=== PATIENT | female | born 1935 | race Caucasian/White ===

== ENCOUNTER 2025-04-25 02:17 | Inpatient (IN) | payer OTHER, SELFPAY ==
[2025-04-24 23:29] VITALS: BP 167/68; BMI 29.2
[2025-04-24 23:32] VITALS: BP 167/68
--- NOTE | 2025-04-24 23:34 | ED.GENMED ---
History of Present Illness
General
Chief Complaint: Fall
Source: patient and family (Daughter, at bedside)
Exam Limitations: none
Time Seen by Provider: 04/24/25 23:28
Nursing documentation reviewed up to this point in time: agreed with
History of Present Illness
History of Present Illness:
This is an 89-year-old, quite spry woman who resides at home independently. She suffered a mechanical fall tonight injuring her left hip. Denies head injury nor loss of consciousness but severe pain to her left hip, unable to sit up nor stand.
She arrives via EMS.
She was given a total of 150 mcg fentanyl prehospital to assist with pain control, packaging and transportation.
Currently comfortable and reports moderate improvement in pain.
She takes no medicines on a daily basis, denies anticoagulants.
Denies head injury, denies headache, denies neck nor back pain. She denies chest pain nor palpitations nor lightheadedness, denies abdominal pain, no nausea or vomiting. She denies weakness nor numbness.
Past History
Past History
ED Past Medical History: None
ED Past Surgical History: Orthopedic (Left hip replacement, left elbow fracture repair.)
Social History
Tobacco: Non-smoker
Alcohol: None
Personal:
Living: with family
Family History
Family History: Other (Noncontributory)
Phy Exam
Physical Exam
Physical Exam:
TRAUMA EXAM:
VITAL SIGNS: Vital signs reviewed, cooperative
DISTRESS: No active disease. 89-year-old woman appears younger than stated age, bright and alert, pleasant, appears in no acute distress. Her daughter, Jessica, one of our [employer]'s is at bedside.
EYES: Pupils reactive, no orbital trauma
NOSE: No deformity or epistaxis
FACE AND SCALP: No scalp or facial trauma, external canals no blood
NECK: Supple nontender
BACK: Back nontender, pelvis stable to compression
RESPIRATORY: No distress, breath sounds normal, no tender chest wall
CARDIAC: No murmur, pulses equal and strong
ABDOMEN: Soft nontender bowel sounds normal
SKIN: Skin intact no bleeding, color normal
EXTREMITIES: Left lower extremity mildly flexed at hip and knee for comfort. Moderate tenderness about the left hip with markedly limited range of motion left hip related to pain. There is no tenderness about the thigh. Evidence of prior left
total knee replacement. No knee tenderness nor effusion nor contusion. Peripheral pulses are full and equal bilaterally. Full ankle range of motion bilaterally without difficulty nor pain. Sensation and strength intact.
NEUROLOGICAL: Alert, oriented, no motor deficits
PSYCH: Mood affect normal
Course
Orders/Labs/Results
Orders:
Orders
04/24/25 23:32
Electrocardiogram (*1) Urgent
Reason for Study: PreOp
Urinalysis Reflex To Culture Urgent
Date Specimen was Collected: 04/24/25
Time Specimen was Collected: 23:46
04/24/25 23:33
EKG- Treatment ONCE
CR Hip - LT w/wo Pel 2-3 Vw* Urgent
Comment:
Reason For Exam: fall, Left hip pain
Include a pelvis x-ray?: Yes
04/24/25 23:43
Type+Screen Urgent
Complete Blood Count/With Diff Urgent
Comprehensive Metabolic Panel Urgent
PTT Urgent
04/24/25 23:58
ABO2 Routine
BBK Wristband Number:
Associate notified that ABO2 has been ordered: [id number]
Date: 04/25/25
Time: 00:[address] Clerk ID: [id number]
Abnormal Lab Results
04/24/25
23:43
RBC 3.75 L 10^6/uL
(4.20-5.40)
Hct 34.2 L %
(37.0-47.0)
MCH 32.0 H pg
(27.0-31.0)
Chloride 110 H mmol/L
(98-107)
BUN 23 H mg/dl
(7-17)
Glucose 112 H mg/dl
(70-99)
04/24/25 23:43
04/24/25 23:43
Vital Signs
Initial and Last Documented VS:
Initial Vital Signs
Temp Pulse Resp BP Pulse Ox
98.8 F 79 16 167/68 97
04/24/25 23:29 04/24/25 23:29 04/24/25 23:29 04/24/25 23:29 04/24/25 23:29
Last Documented Vital Signs
Temp Pulse Resp BP Pulse Ox
98.8 F 79 16 145/57 95
04/24/25 23:29 04/24/25 23:29 04/24/25 23:29 04/25/25 00:00 04/25/25 00:15
MDM/Problems Addressed
Differential Diagnosis Includes:
Significant concern for acute left hip fracture. Other consideration is pelvic fracture.
Hemodynamically stable. Takes no anticoagulants.
Denies head injury, no loss of consciousness, no prodromal symptoms�nothing to suggest syncope nor near syncope. Denies neck nor back pain.
No focal neurodeficits.
No indication for CT of the head nor spinal imaging.
Will check left hip and pelvis x-ray.
Will continue pain medication as needed.
Routine labs and EKG for potential preop purposes.
*Radiology
Radiology exam reviewed: preliminary read by ED provider (X-ray shows slightly comminuted intertrochanteric left hip fracture. In good alignment.)
*Pulse Oximetry
SaO2: 98
Oxygen Mode of Delivery: Room air
Patient hypoxic: no
*EKG
Interpreted by ED Provider?: Yes
Interpretation: normal
Comparison EKG: no comparison EKG present
Rate: normal
Rhythm: sinus
Descanso: normal axis
Interval: first degree heart block
QRS Pattern: normal QRS
Ischemia: no ischemia
*Children Librarian Interpretation
Rate: normal
Interpretation: normal
Rhythm: sinus
*Critical Care Note
Total Time (30-74mins, 75-104mins- exclusive of procedures): Not Applicable
Update Note
Update Note:
00:25
As expected, left hip x-ray shows slightly comminuted intertrochanteric fracture of the left hip. No pelvic fracture.
Patient remains comfortable, hemodynamically stable.
Labs are unremarkable.
EKG is unremarkable.
Will admit to hospitalist service.
Orthopedics has been notified.
ED Attending Note
-
Portions of this chart may have been created with voice recognition software.� Occasional wrong word or��sound alike� substitutions may have occurred due to the inherent limitations of voice recognition software.
Discharge Plan
Departure
Patient Disposition: Admit
Date of Disposition: 04/25/25
Time of Disposition: 00:26
Admit to: Med/Surg
Admit to doctor: Deirdre
Presentation/result/management discussed w/ accepting MD/DO: Hospitalist
Discharge Problem:
Acute left hip fracture
Prescriptions:
No Action
No Current Medications
0
Interventions
Interventions:
*Risk Screen - Suicide Last Done: 04/24/25 23:29
*General Assessment Last Done: 04/24/25 23:29
*Neglect/Abuse Screening Last Done: 04/24/25 23:29
*ED COVID-19 Vaccine History Last Done: 04/24/25 23:29
ED-Musculoskeletal Assessment Last Done: 04/25/25 00:19
ED- Neurological Assessment Last Done: 04/25/25 00:19
ED-Skin Assessment Last Done: 04/25/25 00:19
Discharge Date and Time
Print Language: GREENLANDIC
[2025-04-24 23:52] LABS: % Basophils 0.4 % (0-2); % Eosinophils 1.3 % (0-6); % Immature Granulocytes 0.4 % (0-0.5); % Lymphocytes 20.9 % (20.5-51.1); % Monocytes 7.9 % (1.7-9.3); % Neutrophils 69.1 % (42.2-75.2); Absolute Eosinophils 0.1 10^3/uL (0-0.7); Absolute Lymphocytes 1.6 10^3/uL (1.2-3.4); Absolute Monocytes 0.6 10^3/uL (0.1-0.6); Absolute Neutrophils 5.1 10^3/uL (1.4-6.5); Hematocrit 34.2 % (37.0-47.0); Mean Corp Hgb Conc. 35.1 g/dL (33.0-37.0); Mean Corpuscular Volume 91.2 fL (81.0-99.0); Mean Platelet Volume 9.4 fL (7.4-10.4); Nucleated Red Blood Cells % 0 %; Platelet Count 211 10^3/uL (130-400); Red Blood Cell Count 3.75 10^6/uL (4.20-5.40); Red Cell Dist. Width 12.9 % (11.5-14.5); White Blood Cell Count 7.5 10^3/uL (4.8-10.8)
[2025-04-25] VITALS (13 sets, daily range): BP systolic 110–175; BP diastolic 49–110; BMI 28.2
[2025-04-25 00:05] LABS: APTT 24.5 Sec (23.4-35.0)
[2025-04-25 00:14] LABS: ALT (SGPT) 13 U/L (0-35); AST (SGOT) 23 U/L (14-36); Albumin 4.2 g/dl (3.5-5.0); Alkaline Phosphatase 88 U/L (38-126); Blood Urea Nitrogen 23 mg/dl (7-17); Calcium 9.6 mg/dl (8.4-10.2); Carbon Dioxide 23 mmol/L (22-30); Chloride 110 mmol/L (98-107); Estimated Creatinine Clearance 59 ml/min; Glucose 112 mg/dl (70-99); Sodium 141 mmol/L (135-145); Total Bilirubin 0.6 mg/dl (0.2-1.3); Total Protein 6.7 g/dl (6.3-8.2); eGFR > 60.00
[2025-04-25] MEDS: NSS 1000 IV (00:59)
--- NOTE | 2025-04-25 01:06 | HPS.HSE ---
Family Physician
-
Family Physician:
Chief Complaint
-
Fall
History of Present Illness
Patient is 89-year-old female with no known segment past medical history presented to the emergency department following a mechanical fall.
She stated that she was walking into her home and tripped on a plastic piece falling to her left side. She had left-sided hip pain immediately. She was able to sit up but was unable to get up after that. She denies any numbness or tingling. She
denies any loss of consciousness. She denies any palpitations lightheaded dizziness or chest pain. She has a prior left knee surgery but no other surgeries. Patient is not on any blood thinners and does not recall striking her head. EMS was
called by spouse and patient brought to the emergency department.
Emergency Department she was afebrile, blood pressure was 145/70 with a pulse of 79 and she was satting 98% on room air. ECG shows a normal sinus rhythm with 4 degree AV block at a rate of 80 and no acute ischemic changes.
CBC was unremarkable. Electrolytes BUN and creatinine were in the normal range. The left hip x-ray shows slightly comminuted intertrochanteric fracture of the left hip
Medical History
Past Medical History
Past Medical History: Reports None
Past Surgical History: Reports Orthopedic (Left total knee arthroplasty,)
Social History
Tobacco: Non-smoker
Alcohol: None
Drug: None
Personal:
Living: With Family
Employment: Retired
Family History
Family History: Not pertinent
Allergies / Home Medications
Allergies reflects when Allergies were last updated in [facility].
Home Medications with original date entered in [facility]
Allergy/Medication List:
Allergies
Allergy/AdvReac Type Severity Reaction Status Date / Time
No Known Allergies Allergy Unverified 04/24/25 23:40
Home Medications
No Meds [No Current Medications] 04/24/25
Review of Systems
-
Constitutional: Reports No Symptoms
EENT: Reports No Symptoms
Respiratory: Reports No Symptoms
Cardiac: Reports No Symptoms
Abdomen/GI: Reports No Symptoms
: Reports No Symptoms
Musculoskeletal: Reports Joint Pain
Skin: Reports No Symptoms
Neurological: Reports No Symptoms
Endocrine: Reports No Symptoms
Hematologic/Lymphatic: Reports No Symptoms
Psych: Reports No Symptoms
Physical Exam
Vital Signs
Vital Signs
Temp Pulse Resp BP Pulse Ox
98.8 F 79 16 145/57 98
04/24/25 23:29 04/24/25 23:29 04/24/25 23:29 04/25/25 00:00 04/25/25 00:29
Physical Exam
General: Well Developed, Well Nourished and No Apparent Distress
HEENT: NormoCephalic, Moist mucous membranes and Atraumatic
Respiratory: Clear
Cardiac: S1/S2, Regular Rhythm, Carotid Pulses and Other (2+ pedal pulses bilaterally); No Murmur, Rub, Peripheral Edema or Calf Tenderness
GI: Soft, Non Tender, Non Distended and Normal Bowel Sounds; No Organomegaly
Rectal: Deferred by Provider
Genito-urinary: Deferred by me
Musculoskeletal: No Clubbing, No Cyanosis, No Edema and Other (No limb length asymmetry)
Skin: No Rash
Neuro: Nonfocal/grossly intact
Laboratory Results
-
04/24/25 23:43
04/24/25 23:43
Laboratory Results
APTT 24.5 Sec (23.4-35.0) 04/24/25 23:43
Total Bilirubin 0.6 mg/dl (0.2-1.3) 04/24/25 23:43
AST 23 U/L (14-36) 04/24/25 23:43
ALT 13 U/L (0-35) 04/24/25 23:43
Alkaline Phosphatase 88 U/L (38-126) 04/24/25 23:43
Data Reviewed
-
Diagnostic Radiology: Image Personally Visualized and interpreted
Medical Tests (Nuc Med, Echo, EKG etc): Image Personally Visualized and interpreted
Lab Data: Labs Reviewed by me
Old Records: Reviewed
Impression/Plan
-
IMPRESSION:
89-year-old without any known past medical history presents to the emergency department following mechanical fall and found to have a left hip intratrochanteric femoral fracture.
PLAN:
Hip fracture -requires surgical procedure
-Admit to MedSurg
-Bedrest pending surgery
-Pain control, antiemetics
-N.p.o., IV fluids
-Monitor for urinary retention
-SCDs for now, can start medical anticoagulation after surgery
-CODE STATUS�full code
[2025-04-25] MEDS: DILAUDID 0.25 MG IV ×2 (01:54→10:30)
--- NOTE | 2025-04-25 03:20 | PTCARENOTE ---
Pt received from ED via stretcher. Pulled over to bed x3 w/o incident. Oriented to surroundings and plan of care discussed. Admission and assessment completed. Wiped down w/CHG cloths, undergarments removed. Purewick external catheter placed
2/2 immobility and pain. Knee high SCDs placed. #18 RAC w/NSS at 125 mL/hr. Pt reports pain as tolerable when not moving. Call cormier w/in reach. Pt is oriented and able to ring appropriately. Verbalizes understanding of bedrest orders.
[2025-04-25] MEDS: LR 1000 IV (04:06)
[2025-04-25] MEDS: TYLENOL PO (04:09)
--- NOTE | 2025-04-25 07:43 | CON.ORTHO ---
Consultation
-
Date/Time Consultation Requested: 04/24/2025; time unknown
Date/Time Consultation Performed: 04/25/2025; 0700
Requesting Provider: unknown
Performing Provider: Nancy Gray PA-C / Dr. Cj Sanchez
Reason for Consultation: Left intertrochanteric femur fracture
Consultation - Orthopedics
History
Ms. Silverman is an 89 yo F with no known PMH seen today for her left hip. She reports she tripped while at home and landed on her left side. She experienced immediate onset of pain, and was unable to get up off the ground. She was transported to
ED via EMS where x-rays revealed an intertrochanteric femur fracture. She is resting comfortably in bed this morning. She denies any pain at rest, but does endorse pain about the hip with movement. She denies pain elsewhere.
She lives at home with her . She ambulates without assistance at baseline. She denies PMH of DVT, CVA, LA or DM. She does not take any daily blood thinners. She denies known history of difficulty with anesthesia.
Allergies / Home Medications
Allergy/AdvReac Type Severity Reaction Status Date / Time
No Known Allergies Allergy Unverified 04/24/25 23:40
�Medication �Instructions �Recorded
No Meds [No Current Medications] 04/24/25
Vital Signs / Lab Results
Temp Pulse Resp BP Pulse Ox
98.2 F 85 18 175/75 95
04/25/25 02:20 04/25/25 02:20 04/25/25 02:20 04/25/25 02:20 04/25/25 03:44
04/24/25 23:43
04/24/25 23:43
XR Left Hip Findings/impression:
Left hip intratrochanteric fracture. Slightly impacted. Nondisplaced, nonangulated. Associated displaced fracture of the lesser trochanter. The periacetabular ilium is intact.
Assessment / Plan
Left intertrochanteric femur fracture
--Unfortunatley, Ivonne sustained a left intertrochanteric femur fracture in her fall. I recommend proceeding with a left cephalomedullary nail for fixation of her fracture. The risks, benefits, alternatives, recovery process and potential
complications were discussed in detail. She would like to proceed with surgical intervention. Surgical and blood consents are signed and on the patient chart. Surgical site has been marked. We plan to proceed with OR this afternoon under the
direction of Dr. Sanchez pending OR availability.
--NPO until surgery.
--NWB to LLE until surgery.
--Pain control prn.
--Abx and irrigation ordered to OR.
--T+S completed.
-Orthopedics will continue to follow along.
[2025-04-25] MEDS: TYLENOL 650 MG PO ×4 (08:12→20:54)
--- NOTE | 2025-04-25 09:39 | CM ---
Reviewed the chart notes and spoke with the patient at the bedside. The patient resides with her spouse in a two story home with no steps reported. The patient reports no DME/VN/SNF in the past. The patient confirmed her pharmacy of choice is
[facility] [place]. CM continues to be available to patient/family and is monitoring medical plan for needs at discharge.
Plan: Discharge plans will depend on the patient's progress.
[2025-04-25] MEDS: LR IV (17:24)
[2025-04-25] MEDS: ASPIRIN 325 MG PO (17:40)
--- NOTE | 2025-04-25 18:12 | VATNOTE ---
IV placed by EMS. Patient states she is being discharge in AM and declined having IV restarted.
[2025-04-25] MEDS: SENOKOT 17.2 MG PO (20:53)
[2025-04-25] MEDS: COLACE 100 MG PO (20:53)
[2025-04-25] MEDS: NORMOSOL-R/PLASMALYTE-A 1000 IV (20:53)
[2025-04-25 21:20] LABS: Hematocrit 30.8 % (37.0-47.0); Hemoglobin 10.6 g/dL (12.0-16.0)
[2025-04-25 21:48] LABS: Blood Urea Nitrogen 17 mg/dl (7-17); Calcium 8.8 mg/dl (8.4-10.2); Carbon Dioxide 20 mmol/L (22-30); Chloride 110 mmol/L (98-107); Estimated Creatinine Clearance 67 ml/min; Glucose 147 mg/dl (70-99); Potassium 4.1 mmol/L (3.5-5.1); Sodium 138 mmol/L (135-145); eGFR > 60.00
[2025-04-25] MEDS: ANCEF 5 IV (22:02)
[2025-04-26] MEDS: TYLENOL PO (00:41)
[2025-04-26 03:00] VITALS: BP 120/56
[2025-04-26] MEDS: TYLENOL 650 MG PO ×4 (03:19→16:29)
[2025-04-26] MEDS: ROXICODONE 5 MG PO ×2 (03:19→07:19)
--- NOTE | 2025-04-26 03:40 | PTCARENOTE ---
Pt hesitant to get OOB --> BSC. Heavy assist x2 w/RW. Voided on BSC. Encouraged to take pain medication, pt hesitant but receptive (refer to MAR). Ice packs to L hip/thigh when returned to bed. Call casa w/in reach.
--- NOTE | 2025-04-26 05:40 | W.PN.ORTHO ---
Today's Communication / Plan
-
89F POD1 L MARY ANN w/ Dr. Sanchez
-WBAT to LLE
-PT/OT/Dc planning
-dvt ppx- ASA x4 weeks unless recommended otherwise per primary
-diet per primary
-pain regimen in place
-postop abx
-ortho surg will continue to follow
Assessment
.
Distal Motor Intact: Yes
Dressing:
Clean, dry and intact.
Plan
.
Surgery / Date: 04/25/25 L MARY ANN w/ Dr. Sanchez
Activity:
Out of bed.
PT/OT
Subjective
.
.:
Patient resting comfortably.
Vital Signs and Labs
.
Vital Signs and Labs:
Lab Results
04/25/25 21:11
04/25/25 21:10
Temp Pulse Resp BP Pulse Ox
98 F 70 16 120/56 96
04/26/25 03:00 04/26/25 03:00 04/26/25 03:00 04/26/25 03:00 04/26/25 03:00
[2025-04-26] MEDS: ANCEF 5 IV (06:10)
[2025-04-26 07:25] VITALS: BP 120/57
[2025-04-26] MEDS: COLACE 100 MG PO (08:50)
[2025-04-26] MEDS: SENOKOT 17.2 MG PO (08:50)
[2025-04-26] MEDS: ASPIRIN 325 MG PO (08:51)
[2025-04-26 10:04] VITALS: BP 120/57
--- NOTE | 2025-04-26 10:13 | CM ---
Patient seen at bedside on . Therapy recommending home with [facility] and patient stated that she will go home with her . Patient daughter is an ED nurse and patient stated that her daughter would support her going home. Patient requested
[facility] following discussion of PAC data and options. CM spoke with Liaison with [facility] and she will speak with patient. Patient given IMM and will review form. CM will continue to follow for discharge planning needs.
Plan; home with [facility] pending acceptance
[2025-04-26 10:25] VITALS: BP 129/63; PULSE 74; O2SAT 96
--- NOTE | 2025-04-26 10:42 | VNURNOTE ---
Home Health Liaison met with patient at bedside to discuss [facility] nurse/therapy, visits, schedule and homebound status. Patient is agreeable and understands that visits at home will be 2-3 x per week to assess and teach medical management. Verfiied
that patient lives in [place]. Explained that [facility] does not service that area. Patient stated she had [facility] in the past but does not want them again. She then stated she will stay with her daughter Jessica who lives at: [address] [place] [address]
[place] [id number].
Patient is aware that [facility] will contact them for start of care in 1-2 days after discharge from .
[facility] referral completed in [facility].
--- NOTE | 2025-04-26 10:48 | W.PN.HOSP.TC ---
Today's Communication/Plan
-
DC planning
Assessment / Plan
Assessment / Plan
Mechanical fall leading to left intertrochanteric hip fracture
status post Left hip gamma nailing utilizing [place] Gamma nail 11mm x 380 mm with a 100 mm hip screw and a 57.7 mm distal interlocking screw.
Pain under control
Await PT OT formal eval
DC home depending on PT eval and if okay from surgical standpoint.
Continue the current pain regimen.
Anticipated Discharge: Today
Subjective/Interval History
-
Date of Service: April 26, 2025
Status post ORIF of left hip fracture.
Sitting in the chair comfortably.
Pain from the surgical site manageable. Did walk on feet without any dizziness.
Objective Data
-
Vital Signs:
Vital Signs
Temp Pulse Resp BP Pulse Ox
98.1 F 71 16 120/57 94
04/26/25 07:25 04/26/25 07:25 04/26/25 07:25 04/26/25 07:25 04/26/25 07:25
I&O
04/25/25 04/26/25 04/27/25
06:59 06:59 06:59
Intake Total 240 / 240 1060 / 1060
Balance 240 / 240 1060 / 1060
Review of Systems
-
Respiratory: Denies Cough or Trouble Breathing
Cardiac: Denies Chest Pain or Palpitations
Abdomen/GI: Denies Abdominal Pain, Nausea or Vomiting
Neuro: Denies Dizzy
Physical Exam
-
Respiratory: Non Labored Respirations; Negative Accessory Resp Muscle Use
Cardiac: Regular Rhythm and S1/S2
Musculoskeletal: No Edema
Neuro: AO x 3
Data Reviewed
-
Labs: Labs Reviewed by me
[2025-04-26 11:25] VITALS: BP 105/45
[2025-04-26] MEDS: NORMOSOL-R/PLASMALYTE-A IV (14:49)
--- NOTE | 2025-04-26 15:15 | W.DCSUMMARY ---
Discharge Summary
Discharge Data
Date of Admission: 04/25/25
Date of Discharge: 04/26/25
-
Pending Results: No
Hospital Course
Primary diagnosis:
Mechanical fall leading onto left intertrochanteric hip fracture status post gamma nailing
Hospital course:
89-year-old lady without significant past medical history unfortunately had a mechanical fall leading into left intertrochanteric hip fracture. She had Left hip gamma nailing utilizing [place] Gamma nail 11mm x 380 mm with a 100 mm hip screw and a
57.7 mm distal interlocking screw 04/25 without any immediate complication. She did well with the PT OT and was recommended home health. Aspirin 325 mg was recommended for 4 weeks for DVT prophylaxis.
Consultants on board:
Orthopedics-Cj Simms
Discharge Plan
-
Patient Disposition: Home with Home Care
Discharge Diagnosis/Procedures: Mechanical fall leading to left intertrochanteric hip fracture
status post Left hip gamma nailing utilizing [place] Gamma nail 11mm x 380 mm with a 100 mm hip screw and a 57.7 mm distal interlocking screw.
Diet: Regular
Activity: As tolerated
Driving Restrictions: Not until seen by your Dr
Bathing Restrictions: OK to Shower
Other Services: [facility], PT and OT
Referrals:
Cj Sanchez MD [Active, Orthopedics] - in two weeks
Referral Note: Call to make an appointment
UNKNOWN - PT DOES,NOT KNOW [Family Provider] - in less than 1 week
Prescriptions:
New
aspirin 325 mg Tablet
325 mg PO DAILY Qty: 30 0RF
Rx Instructions:
for 4 weeks and stop
docusate sodium 100 mg Capsule
100 mg PO DAILY Qty: 30 0RF
acetaminophen 325 mg Tablet
650 mg PO Q4HWA Qty: 1 0RF
oxycodone 5 mg Tablet
5 mg PO Q4HPRN PRN (Reason: mild pain) Qty: 30 0RF
polyethylene glycol 3350 [HealthyLax] 17 gram powder in packet
17 g PO DAILY Qty: 14 0RF
Rx Instructions:
take it daily while on pain medications
Discharge Orders:
Discharge Patient (As Directed); Ordered 04/26/25
Ordered By: Marco Servin
Discharge Date and Time
Print Language: CROATIAN
[2025-04-26 15:25] VITALS: BP 104/42
--- NOTE | 2025-04-26 16:59 | PTCARENOTE ---
Received discharge orders from hospitalist; D/c paperwork reviewed with Pt, all questions answered; Transport called, brought to main exntrance in wheelchair; Discharge to home.
--- NOTE | 2025-04-27 13:35 | CM ---
Addendum entered by Alyssajoy Palmer 04/27/25 14:30:
Pt accept for service by Neeraj VELASQUEZ
Call to pt with update and TT/Nancy Gray with update
Order and dc paperwork faxed via [facility] to [facility]
Addendum entered by Alyssa [facility] 04/27/25 13:42:
Call with pt on her cell [phone]
Does not want [facility] due to poor past experience
Referral to [facility] per pt request via [facility]- pending
Original Note:
Post dc, CM made aware by [facility] that pt now not staying with her dtr but now staying at home in [place]
Her home is out of [facility] service order and will need new home care provider
VM left for number on chart, same number listed for spouse/emergency contact- awaiting call back to discuss provider choices
== END 2025-04-26 16:58 | disposition home health service (06) | DRG 481 ==
LOC: 2 SOUTH 02:17
PROVIDERS: ADMITTING PHYSICIAN Internal Medicine; ATTENDING PHYSICIAN Internal Medicine; CONSULT PHYSICIAN Orthopaedic Surgery; EMERGENCY PHYSICIAN Emergency Medicine
PROC: 0QS706Z Reposition Left Upper Femur with Intramedullary Internal Fixation Device, Open Approach (ICD-10-PCS; 2025-04-25)
DX: S72.145A Nondisplaced intertrochanteric fracture of left femur, initial encounter for closed fracture (principal); M97.02XA Periprosthetic fracture around internal prosthetic left hip joint, initial encounter; S72.122A Displaced fracture of lesser trochanter of left femur, initial encounter for closed fracture; I44.0 Atrioventricular block, first degree; W01.0XXA Fall on same level from slipping, tripping and stumbling without subsequent striking against object, initial encounter; Y93.01 Activity, walking, marching and hiking; Y92.009 Unspecified place in unspecified non-institutional (private) residence as the place of occurrence of the external cause; Z60.2 Problems related to living alone; Z96.642 Presence of left artificial hip joint; Z96.652 Presence of left artificial knee joint
CPT/HCPCS: 73501; 73502; 76000; 80048; 80053; 85014; 85018; 85025; 85730; 86850; 86900; 86901; 93005; 97162; 97166; 99285